=== PATIENT | female | born 1975 | race Caucasian/White ===

== ENCOUNTER 2022-01-02 16:17 | Emergency (ER) | payer BC ==
[~2022-01-02] VITALS: Ht 167.6 cm; Wt 90.0 kg
[2022-01-02] VITALS (12 sets, daily range): BP systolic 138–159; BP diastolic 77–97
[2022-01-02 16:51] LABS: IMMATURE GRANULOCYTES 0.3 % (0.0-5.0); MEAN CELL VOLUME 95.4 fL CALC (80.0-100.0); MEAN CORPUSCULAR HGB 33.5 pG CALC (26.0-32.0); MEAN CORPUSCULAR HGB CONC 35.1 g/dL CAL (32.0-36.0); NEUT# 10.22 thou/uL (2.00-7.15); RED BLOOD COUNT 4.78 mill/uL (4.20-5.60); RED CELL DISTRI WIDTH 12.4 % (11.5-15.5)
[2022-01-02 16:57] LABS: ALBUMIN 4.9 g/dL (3.2-5.0); ANION GAP 20 (6-22 (CALC)); BILIRUBIN, TOTAL 0.9 mg/dL (0.0-1.4); BUN 12 mg/dL (7-17); BUN/CREATININE RATIO 19 (12-20 (CALC)); CARBON DIOXIDE 23 mmol/l (22-30); CHLORIDE 96 mmol/l (95-108); CREATININE 0.6 mg/dL (0.5-1.0); ETHYL ALCOHOL 0 mg/dl (0-30); GFR > 60 ML/MIN (>=60 (CALC)); GFR FOR AFR.AMER. > 60 ML/MIN (>=60 (CALC)); POTASSIUM 3.3 mmol/l (3.5-5.1); SODIUM 136 mmol/l (137-146); TOTAL PROTEIN 8.9 g/dL (6.3-8.2)
[2022-01-02 16:58] LABS: ALKALINE PHOSPHATASE 105 u/l (38-126); SGOT/AST 128 u/l (14-36)
[2022-01-02 17:03] LABS: HEMATOCRIT 45.6 % (37.0-47.0)
[2022-01-02] MEDS ORDERED: ATIVAN1 M1 PO (18:57)
== END 2022-01-02 19:28 | disposition home or self-care (01) | DRG 556 ==
LOC: ED 16:17
PROVIDERS: Family Medicine
DX: M62.838 Other muscle spasm (principal); F41.9 Anxiety disorder, unspecified; F32.A Depression, unspecified
CPT/HCPCS: J2060